=== PATIENT | female | born 1960 ===

== ENCOUNTER → 2018-02-11 | Outpatient (CLI) | payer BC ==
[~2018-02-11] MED LIST: NORETHIN-ETH E1 EACH PO
[2018-02-16 15:06] LABS: HPV 16 Negative (Negative); HPV 18 Negative (Negative); HPV OTHER HR TYPES Negative (Negative)
== END | disposition home or self-care (01) ==
LOC: LAB 09:32 → LAB SHORT 09:32
PROVIDERS: Nurse Practitioner Women's Health
DX: Z12.4 Encounter for screening for malignant neoplasm of cervix (principal); Z91.89 Other specified personal risk factors, not elsewhere classified
CPT/HCPCS: 87624; G0123

== ENCOUNTER → 2019-02-17 | Outpatient (CLI) | payer BC ==
[2019-02-20 15:07] LABS: HPV 16 Negative (Negative); HPV 18 Negative (Negative); HPV OTHER HR TYPES Negative (Negative)
== END | disposition home or self-care (01) ==
LOC: LAB 14:26 → LAB SHORT 14:26
PROVIDERS: Nurse Practitioner Women's Health
DX: Z12.4 Encounter for screening for malignant neoplasm of cervix (principal); Z91.89 Other specified personal risk factors, not elsewhere classified
CPT/HCPCS: 87624; G0123

== ENCOUNTER 2022-03-19 06:48 | Day surgery (SDC) | payer OTHER ==
[~2022-03-19] VITALS: Ht 165.1 cm; Wt 59.3 kg
[2022-03-19] MEDS ORDERED: PROG100 (07:33)
--- NOTE | 2022-03-19 10:03 | NUR ---
03/19/22 1003 KATIE EAGLE IMMEDIATELY WHEN PT GOT TO STEP DOWN, SHE HAD TO URINATE, RN ASSIST PT INTO BATHROOM. ONCE PT IN CHAIR IN ROOM, RN ADMINISTERED PAIN MEDICATION FOR PAIN 11/21 SEE VS FOR DETAILS
== END 2022-03-19 10:24 | disposition home or self-care (01) ==
LOC: ORSCSDS 06:48
PROVIDERS: Obstetrics & Gynecology
PROC: 0UDB8ZX Extraction of Endometrium, Via Natural or Artificial Opening Endoscopic, Diagnostic (ICD-10-PCS; principal; 2022-03-19 08:15)
DX: N95.0 Postmenopausal bleeding (principal); N85.00 Endometrial hyperplasia, unspecified; Z87.891 Personal history of nicotine dependence
CPT/HCPCS: 88305; J0690; J1100; J1885; J2250; J2405; J2704; J3010; J7120

== ENCOUNTER → 2024-10-23 | Outpatient (CLI) | payer MEDICARE, OTHER ==
[~2024-10-23] MED LIST changes: +PROG100
[2024-10-23 19:27] LABS: Bacterial Vaginosis PCR Negative (NEGATIVE); Candida Group, PCR NOT DETECTED (NOT DETECT); Candida glabrata-krusei, PCR NOT DETECTED (NOT DETECT)
[2024-10-23 19:58] LABS: Chlamydia Trachomatis Vaginal NOT DETECTED (NOT DETECT); Neisseria Gonorrhoea Vaginal NOT DETECTED (NOT DETECT)
[2024-10-25 15:42] LABS: HIV 1,2 COMBO ANTIGEN/ANTIBODY Negative (Negative)
[2024-10-25 18:14] LABS: HEPATITIS B SURFACE ANTIGEN Negative (Negative)
[2024-10-25 19:58] LABS: HEPATITIS C AB CIA INTERP High Pos (Negative); HEPATITIS C ANTIBODY CIA INDEX >11.00 IV
[2024-10-26 12:40] LABS: HCV QNT BY NAAT (IU/ML) Not Detected; HCV QNT BY NAAT (LOG IU/ML) Not Detected; HCV QNT BY NAAT INTERP Not Detected (Not Detected)
== END ==
LOC: LAB SHORT 16:22 → LAB 16:22
PROVIDERS: Registered Nurse Community Health
DX: Z11.3 Encounter for screening for infections with a predominantly sexual mode of transmission (principal); Z20.2 Contact with and (suspected) exposure to infections with a predominantly sexual mode of transmission
CPT/HCPCS: 81515; 86592; 86803; 87340; 87389; 87491; 87522; 87591

== ENCOUNTER 2025-05-21 08:50 | Day surgery (SDC) | payer MEDICARE, OTHER ==
[~2025-05-21] VITALS: Ht 165.1 cm; Wt 59.1 kg
[2025-05-21] VITALS (11 sets, daily range): BP systolic 99–154; BP diastolic 56–90
[~2025-05-21 08:50] MED LIST changes: +CLIMARA1 EACH TOP; +MULTI-VITAMIN1 EAC2 PO; +PROBIOTIC PO; -PROG100; +PROG100 PO; +THERA-D2000 UNIT PO; +TURMERIC500 M2 PO
[2025-05-21] MEDS ORDERED: Tranexamic Acid 100 ML IV SCH (09:30)
[2025-05-21] MEDS ORDERED: Chlorhexidine Mouth Care 15 ML UDC MT SCH (09:30)
[2025-05-21] MEDS ORDERED: Ropivacaine 0.5% HCl/Pf 123.125 MG,EPINEPHrine HCL 0.25 MG,Ketorolac Tromethamine 15 MG... INFIL SCH (09:30)
[2025-05-21] MEDS ORDERED: CeFAZolin Sodium 2,000 MG in NS 100 ML IV SCH ×2 (09:30→20:30)
--- NOTE | 2025-05-21 10:24 | NUR ---
Pre-Op teaching done. Pt verbalizes understanding. Ambulatory in Day Surgery. History, Chart, Medications and Allergies reviewed before start of procedure. Patient confirms NPO status and agrees with scheduled surgery. Patient States Post-Procedure ride home has been arranged.
[2025-05-21] MEDS ORDERED: FentaNYL Citrate 50 MCG/ML 2 ML Injection ONE ×2 (12:05→14:32)
[2025-05-21] MEDS ORDERED: Ondansetron HCl 2 MG / ML 2ML Vial IV PRN ×2 (12:15→12:50)
[2025-05-21] MEDS ORDERED: Metoclopramide HCl 5MG / ML 2ML Vial IV PRN (12:15)
[2025-05-21] MEDS ORDERED: HYDROmorphone HCl/Pf 1MG SYR IV PRN ×2 (12:15→12:55)
[2025-05-21] MEDS ORDERED: Magnesium Hydroxide Conc 10 ML UDC PO PRN (12:15)
[2025-05-21] MEDS ORDERED: FLU VACC TS2025(65UP)/MF59C/PF 45 MCG/0.5 ML SYRINGE IM SCH (12:25)
[2025-05-21] MEDS ORDERED: Ondansetron HCl 2 MG / ML 2ML Vial ONE (12:48)
[2025-05-21] MEDS ORDERED: Dexamethasone Sod Phos 10 MG/ML 1ML VIAL ONE (12:48)
[2025-05-21] MEDS ORDERED: Ketorolac Tromethamine 30mg Vial ONE (12:48)
[2025-05-21] MEDS ORDERED: Rocuronium Bromide 10 MG/ML 5ML Injection IV ONE (12:48)
[2025-05-21] MEDS ORDERED: Labetalol HCL 5 MG/ML 4ML Injection (Single Dose) IV PRN (12:50)
[2025-05-21] MEDS ORDERED: FentaNYL Citrate 50 MCG/ML 2 ML Injection IV PRN ×3 (12:50→12:55)
[2025-05-21] MEDS ORDERED: HYDROmorphone HCl/Pf 1MG SYR ONE (14:33)
[2025-05-21] MEDS ORDERED: ACET500 PO (15:51)
[2025-05-21] MEDS ORDERED: DOCU100 PO (15:52)
[2025-05-21] MEDS ORDERED: ASPI81CH PO (15:52)
[2025-05-21] MEDS ORDERED: OXYC5 PO (15:54)
[2025-05-21] MEDS ORDERED: Ketorolac 0.5% Opth Soln BTL RIGHTEYE SCH (17:00)
--- NOTE | 2025-05-21 17:52 | NUR ---
ASSUMED CARE OF PT @1510 PT SLID SELF OVER TO BED. AXO4. VSS. PT STATES SHE WANTS TO GO HOME. COMPLAINING OF R EYE PAIN UPON ENTERING ROOM - STATES "I THINK I HAVE A CORNEAL ABRASION". AQUACEL INTACT TO L KNEE. SCDS ON. PT WITH FULL SENSATION TO LEGS, CAP REFILL <3SEC. MOVING/WIGGLING TOES WELL. VOIDED. TOLERATED PO INTAKE WELL. 2ND DOSE OF TXA INFUSED. PT REQUESTING CONSISTENTLY TO GO HOME " QUICK POSSIBLE, I'M NOT WAITING AROUND". PT CONTINUED TO COMPLAIN OF R EYE PAIN. CALLED DR NORTH - STATED TO PLACE AN OPTHOMOLOGY CONSULT - CALLED DR BEST - STATES UNABLE TO COMPLETE CONSULT TODAY BUT COULD SEE PT TOMORROW 05/22/25. GAVE SUGGESTION/ORDER FOR NEOPOLYDEX OPTHALMIC OINTMENT QID. AT THE SAME TIME - ANESTHESIOLOGIST CALLED REGARDING THIS AND PLACED ORDERS FOR ACULAR AND CIPROFLOXACIN OPTHALMIC OINTMENT - THESE WERE SENT TO PHARMACY ALONG WITH OTHER DC ORDER MEDS. PT ENCOURAGED TO STAY AND SEE OPHTHOMALOGY BUT PT STATES SHES NOT WAITING AND WILL SEE [facility]. PAIN MEDS PER EMAR. PT WORKED WITH PHYSICAL THERAPY. DC INSTRUCTIONS PROVIDED TO PT AND FAMILY IM ROOM. COLD PACK AND PT'S BELONGINGS WITH PT. DC'D WITH EXTRA AQUACEL@1708. IV PULLED UPON LEAVING ROOM.
[2025-05-21] MEDS ORDERED: Ketorolac Tromethamine 15mg Vial IV SCH (18:00)
[2025-05-21] MEDS ORDERED: Lactobacil 2-S.Thermo-Bifido 1 1 Cap PO SCH (21:00)
[2025-05-22] MEDS ORDERED: Cholecalciferol 1000 Unit Tablet (=25MCG) PO SCH (09:00)
== END 2025-05-21 17:08 | disposition home or self-care (01) ==
LOC: ORSCMMR 08:50 → ORD 11:30 → ORSCMMR 11:45 → ORD 11:45 → SURS 14:48 → ORSCMMR 17:08
PROVIDERS: Orthopaedic Surgery
PROC: 8E0Y0CZ Robotic Assisted Procedure of Lower Extremity, Open Approach (ICD-10-PCS; principal; 2025-05-21 12:30)
PROC: 0SRD0L9 Replacement of Left Knee Joint with Medial Unicondylar Synthetic Substitute, Cemented, Open Approach (ICD-10-PCS; principal; 2025-05-21 12:30)
DX: M17.12 Unilateral primary osteoarthritis, left knee (principal); F17.210 Nicotine dependence, cigarettes, uncomplicated; Z79.899 Other long term (current) drug therapy
CPT/HCPCS: 73560-LT; 97161; 97530; A9270; C1713; C1776; J0166; J0690; J0735; J1100; J1171; J1885; J2405; J2704; J2795; J3010; J7120